=== PATIENT | female | born 1995 | race Caucasian/White ===

== ENCOUNTER 2017-01-30 16:50 | Observation (INO) | payer MEDICAID ==
[~2017-01-30] VITALS: Ht 165.1 cm; Wt 105.7 kg
[2017-01-30] MEDS ORDERED: PREN-88 PO (17:15)
[2017-01-30] MEDS ORDERED: ACETAMINOPHEN 500MG TABLET PO NR (19:45)
== END 2017-01-30 21:08 | disposition home or self-care (01) ==
LOC: L&D 16:50
PROVIDERS: ADMIT Obstetrics & Gynecology; ATTEND Obstetrics & Gynecology
DX: O26.893 Other specified pregnancy related conditions, third trimester (principal); R10.9 Unspecified abdominal pain; Z3A.35 35 weeks gestation of pregnancy
CPT/HCPCS: 76805; 76818; 99281; G0378

== ENCOUNTER 2017-02-22 10:42 | Observation (INO) | payer MEDICAID ==
[~2017-02-22] VITALS: Ht 167.6 cm; Wt 106.1 kg
[~2017-02-22 10:42] MED LIST: PREN-88 PO
== END 2017-02-22 12:15 | disposition home or self-care (01) ==
LOC: L&D 10:42
PROVIDERS: ADMIT Obstetrics & Gynecology; ATTEND Obstetrics & Gynecology
DX: O62.9 Abnormality of forces of labor, unspecified (principal); O26.893 Other specified pregnancy related conditions, third trimester; N89.8 Other specified noninflammatory disorders of vagina; Z3A.39 39 weeks gestation of pregnancy
CPT/HCPCS: 99281; G0378